=== PATIENT | male | born 1995 | race African-American/Black ===

== ENCOUNTER 2018-09-04 20:23 | Emergency (ER) | payer OTHER ==
[~2018-09-04] VITALS: Ht 170.2 cm; Wt 54.9 kg
[2018-09-04 21:30] LABS: PLATELET COUNT 233 K/uL (142-355)
[2018-09-04 21:43] LABS: POTASSIUM 4.3 mmol/L (3.6-5.2)
[2018-09-04 22:48] VITALS: BP 121/79; TEMP 99
== END 2018-09-04 22:54 | disposition home or self-care (01) ==
LOC: ED 20:23
PROVIDERS: Family Medicine
DX: R55 Syncope and collapse (principal); R56.9 Unspecified convulsions
CPT/HCPCS: 80053; 80307; 81000; 85027; 85610; 85730; 99283